=== PATIENT | male | born 1950 | race Caucasian/White ===

== ENCOUNTER 2018-08-30 05:44 | Day surgery (SDC) | payer OTHER ==
[~2018-08-30] VITALS: Ht 182.9 cm; Wt 122.5 kg
[~2018-08-30 05:44] MED LIST: ALLO100T PO; ASPI-1026 PO; BENA1TAB18 PO; DILT240C46 PO; FERR324T10 PO; METF-444 PO; METO50TA18 PO; SIMV40TA59 PO; TORS20TA4 PO; WARF-67 PO; WARF1TAB83 PO
[2018-08-30] MEDS ORDERED: SODIUM CHLORIDE 0.9% 1000ML 1,000 ML IV ONE (05:54)
[2018-08-30 06:36] VITALS: BP 115/72
[2018-08-30 07:09] LABS: INR 1.14 (0.85-1.15); PROTHROMBIN TIME 11.9 SEC (9.6-11.6)
[2018-08-30] MEDS ORDERED: PROPOFOL 10 MG/ML 20ML VIAL IV ONE (07:53)
[2018-08-30] MEDS ORDERED: PHENYLEPHRINE HCL 10 MG/ML 1ML VIAL IV ONE (08:03)
[2018-08-30] MEDS ORDERED: SODIUM CHLORIDE 0.9% 10 ML VIAL ONE (08:04)
[2018-08-30 08:25] VITALS: BP 97/49
[2018-08-30 08:31] VITALS: BP 97/49
[2018-08-30 08:34] VITALS: BP 97/49
[2018-08-30 08:49] VITALS: BP 105/79
== END 2018-08-30 09:00 | disposition home or self-care (01) ==
LOC: ENDO 05:44 → DAH 05:44 → ENDO 09:00
PROVIDERS: ATTEND Internal Medicine
DX: D12.4 Benign neoplasm of descending colon (principal); K63.5 Polyp of colon; K57.30 Diverticulosis of large intestine without perforation or abscess without bleeding; K64.0 First degree hemorrhoids; K44.9 Diaphragmatic hernia without obstruction or gangrene; K22.8 Other specified diseases of esophagus; K31.89 Other diseases of stomach and duodenum; K29.50 Unspecified chronic gastritis without bleeding; B96.81 Helicobacter pylori [H. pylori] as the cause of diseases classified elsewhere; I10 Essential (primary) hypertension; I48.91 Unspecified atrial fibrillation; E66.9 Obesity, unspecified; Z79.899 Other long term (current) drug therapy; Z79.01 Long term (current) use of anticoagulants
CPT/HCPCS: 36415; 43239; 45380; 45385; 82948 ×2; 85610; 88305; 93005; A4606; J2370; J2704; J7030